=== PATIENT | female | born 1950 | race Caucasian/White ===

== ENCOUNTER → 2016-10-28 | Outpatient (REF) | payer MEDICARE, OTHER ==
[2016-10-28 14:40] LABS: BLOOD UREA NITROGEN 10 MG/DL (7-18); CREATININE FOR GFR 0.71 MG/DL (0.55-1.02); GLOMERULAR FILTRATION RATE > 60.0 (>45)
== END ==
LOC: M LABNEURO 13:36
PROVIDERS: ATTEND Psychiatry & Neurology Neurology
DX: M31.6 Other giant cell arteritis (principal)

== ENCOUNTER 2017-03-22 12:09 | Emergency (ER) | payer MEDICARE, OTHER ==
[~2017-03-22] VITALS: Ht 157.5 cm; Wt 45.5 kg
[2017-03-22 12:09] VITALS: BP 117/63
[2017-03-22] MEDS ORDERED: LORA0.5T11 PO (12:19)
[2017-03-22] MEDS ORDERED: METO1TAB87 PO (12:19)
== END 2017-03-22 13:36 | disposition left against medical advice (07) ==
LOC: M ED 12:09
DX: R10.9 Unspecified abdominal pain (principal); Z53.21 Procedure and treatment not carried out due to patient leaving prior to being seen by health care provider

== ENCOUNTER → 2022-03-07 | Outpatient (CLI) | payer MEDICARE, OTHER ==
[~2022-03-07] MED LIST: E-Z-GAS II EFFERVESCENT PACKET (SODIUM BICARB./CITRIC ACID/SIMETHICONE) As Ordered ONE; E-Z-HD 98% w/w 340GM SUSP BTL As Ordered ONE; E-Z-PAQUE 96% w/w SUSP 176GM BTL As Ordered ONE; LORA0.5T5 PO; METO1TAB87 PO
== END ==
LOC: M RAD 08:51
PROVIDERS: ATTEND Preventive Medicine Undersea and Hyperbaric Medicine
DX: R13.10 Dysphagia, unspecified (principal); K57.10 Diverticulosis of small intestine without perforation or abscess without bleeding

== ENCOUNTER 2022-12-22 15:13 | Emergency (ER) | payer MEDICARE, OTHER ==
[~2022-12-22] VITALS: Ht 157.5 cm; Wt 53.6 kg
[~2022-12-22 15:13] MED LIST changes: -E-Z-GAS II EFFERVESCENT PACKET (SODIUM BICARB./CITRIC ACID/SIMETHICONE) As Ordered ONE; -E-Z-HD 98% w/w 340GM SUSP BTL As Ordered ONE; -E-Z-PAQUE 96% w/w SUSP 176GM BTL As Ordered ONE
[2022-12-22] MEDS ORDERED: TREL1AER PO (15:25)
[2022-12-22] MEDS ORDERED: BUSP5TA (15:25)
[2022-12-22] MEDS ORDERED: PROP225T (15:25)
[2022-12-22] MEDS ORDERED: DILT30TA (15:25)
[2022-12-22] MEDS ORDERED: ERGO500029 (15:25)
[2022-12-22 17:33] LABS: BASO # 0.1 10^3/uL (0.0-0.2); BASO % 0.6 % (0.0-1.0); EOS # 0.3 10^3/uL (0.0-0.5); EOS % 1.8 % (0.0-3.0); HEMATOCRIT 46.5 % (36.0-47.0); HEMOGLOBIN 15.6 g/dl (12.0-15.5); LYMPH # 3.1 10^3/uL (1.5-5.0); MEAN CORPUSCULAR HEMOGLOBIN 30.7 pg (27.0-33.0); MEAN CORPUSCULAR HGB CONC 33.5 g/dl (32.0-36.5); MEAN CORPUSCULAR VOLUME 91.5 fl (80.0-96.0); MONO # 0.8 10^3/uL (0.0-0.8); MONO % 5.4 % (2.0-8.0); NEUTROPHILS # 10.5 10^3/uL (1.5-8.5); NEUTROPHILS % 70.6 % (36.0-66.0); PLATELET COUNT, AUTOMATED 257 10^3/uL (150-450); RED BLOOD COUNT 5.08 10^6/uL (4.00-5.40); WHITE BLOOD COUNT 14.9 10^3/uL (4.0-10.0)
[2022-12-22 17:51] LABS: CK-MB VALUE MASS 1.8 NG/ML (<3.6)
[2022-12-22 17:54] LABS: BLOOD UREA NITROGEN 13 MG/DL (9-23); CALCIUM LEVEL 9.4 MG/DL (8.3-10.6); CARBON DIOXIDE LEVEL 25 MMOL/L (20-31); CHLORIDE LEVEL 106 MMOL/L (98-107); CREATININE FOR GFR 0.78 MG/DL (0.55-1.30); GLOMERULAR FILTRATION RATE > 60.0 (>39); GLUCOSE, FASTING 99 MG/DL (74-106); POTASSIUM SERUM 4.9 MMOL/L (3.5-5.1); SODIUM LEVEL 141 MMOL/L (136-145)
[2022-12-22 18:02] LABS: CPK CREATINE PHOSPHOKINASE 66 U/L (34-145); MB/CK RELATIVE INDEX 2.72 (< OR =4)
[2022-12-22] MEDS ORDERED: ISOVUE-370 76% 100ML VIAL As Ordered ONE (18:12)
[2022-12-22 18:53] LABS: INR 1.03; PROTHROMBIN TIME 13.7 SECONDS (12.5-14.5)
[2022-12-22 18:54] LABS: PARTIAL THROMBOPLASTIN TIME 29.8 SECONDS (24.8-34.2)
[2022-12-22 19:11] LABS: CK-MB VALUE MASS < 1.0 NG/ML (<3.6)
[2022-12-22 19:12] LABS: CPK CREATINE PHOSPHOKINASE 52 U/L (34-145); MB/CK RELATIVE INDEX 1.92 (< OR =4)
[2022-12-22] MEDS ORDERED: ASPIRIN 81MG CHEW TABLET PO ONE (19:20)
[2022-12-22] MEDS ORDERED: dilTIAZem 30 MG TAB PO STA (19:38)
[2022-12-22] MEDS ORDERED: METOPROLOL TART 25 MG TABLET PO STA (19:38)
[2022-12-22] MEDS ORDERED: PROPAFENONE 150 MG TAB PO STA (19:38)
[2022-12-22] MEDS ORDERED: HEPARIN DRIP 25,000 UNITS in IV 1 EA IV SCH (19:40)
[2022-12-22] MEDS ORDERED: HEPARIN SOD (PORCINE) 5000UNITS/ML 1ML VIAL/SYRINGE IV PRN (19:40)
[2022-12-22] MEDS ORDERED: HEPARIN SOD (PORCINE) 5000UNITS/ML 1ML VIAL/SYRINGE IV ONE (19:40)
[2022-12-22 19:47] VITALS: BP 136/95
[2022-12-22 19:51] LABS: ALBUMIN 4.2 G/DL (3.2-5.2); ALKALINE PHOSPHATASE 86 U/L (46-116); ALT/SGPT 12 U/L (7.0-40); AST/SGOT 12 U/L (<34); BILIRUBIN,DIRECT 0.1 MG/DL (<0.4); BILIRUBIN,TOTAL 0.5 MG/DL (0.3-1.2); TOTAL PROTEIN 6.9 G/DL (5.7-8.2)
[2022-12-22 20:12] LABS: HEMATOCRIT 42.4 % (36.0-47.0); HEMOGLOBIN 14.3 g/dl (12.0-15.5); MEAN CORPUSCULAR HEMOGLOBIN 30.5 pg (27.0-33.0); MEAN CORPUSCULAR HGB CONC 33.7 g/dl (32.0-36.5); MEAN CORPUSCULAR VOLUME 90.4 fl (80.0-96.0); PLATELET COUNT, AUTOMATED 226 10^3/uL (150-450); RED BLOOD COUNT 4.69 10^6/uL (4.00-5.40); WHITE BLOOD COUNT 12.2 10^3/uL (4.0-10.0)
[2022-12-22 21:06] LABS: CK-MB VALUE MASS 1.1 NG/ML (<3.6)
[2022-12-23 03:10] LABS: INR 1.04; PROTHROMBIN TIME 13.8 SECONDS (12.5-14.5)
[2022-12-23 03:11] LABS: PARTIAL THROMBOPLASTIN TIME 55.1 SECONDS (24.8-34.2)
[2022-12-23 06:43] VITALS: BP 145/66; TEMP 97.6; O2SAT 96
== END 2022-12-23 06:53 | disposition short-term general hospital (02) ==
LOC: M ED 15:13
DX: I21.4 Non-ST elevation (NSTEMI) myocardial infarction (principal); I48.91 Unspecified atrial fibrillation; I50.9 Heart failure, unspecified; E78.5 Hyperlipidemia, unspecified; F17.200 Nicotine dependence, unspecified, uncomplicated; Z79.899 Other long term (current) drug therapy
CPT/HCPCS: 71045; 71275; 80048; 80076; 82550; 82553; 84484; 85025; 85027; 85610; 85730; 93005; 93041; 94760; 96374; 99285; Q9967